=== PATIENT | female | born 1940 | race Caucasian/White ===

== ENCOUNTER → 2016-03-31 | Outpatient (CLI) | payer MEDICARE | END | disposition home or self-care (01) | LOC: PCVCCLINIC 10:00 | PROVIDERS: ATTEND Internal Medicine | DX: I48.0 Paroxysmal atrial fibrillation (principal); I12.9 Hypertensive chronic kidney disease with stage 1 through stage 4 chronic kidney disease, or unspecified chronic kidney disease; N18.9 Chronic kidney disease, unspecified; E78.00 Pure hypercholesterolemia, unspecified; Z79.01 Long term (current) use of anticoagulants; Z94.0 Kidney transplant status | CPT/HCPCS: 80061; G0463 ==

== ENCOUNTER → 2016-11-01 | Outpatient (CLI) | payer MEDICARE | END | disposition home or self-care (01) | LOC: PCVCCLINIC 13:49 | PROVIDERS: ATTEND Internal Medicine | DX: I48.0 Paroxysmal atrial fibrillation (principal); E78.5 Hyperlipidemia, unspecified; M81.0 Age-related osteoporosis without current pathological fracture; I12.9 Hypertensive chronic kidney disease with stage 1 through stage 4 chronic kidney disease, or unspecified chronic kidney disease; N18.4 Chronic kidney disease, stage 4 (severe); Z79.01 Long term (current) use of anticoagulants; Z94.0 Kidney transplant status; Z85.828 Personal history of other malignant neoplasm of skin; Z90.49 Acquired absence of other specified parts of digestive tract; Z79.899 Other long term (current) drug therapy; Z88.2 Allergy status to sulfonamides; Z88.6 Allergy status to analgesic agent; Z88.8 Allergy status to other drugs, medicaments and biological substances; Z90.721 Acquired absence of ovaries, unilateral | CPT/HCPCS: 80061; 93005; G0463 ==

== ENCOUNTER → 2016-11-29 | Outpatient (CLI) | payer MEDICARE | END | disposition home or self-care (01) | LOC: PCVCCLINIC 13:24 | PROVIDERS: ATTEND Internal Medicine | DX: I48.0 Paroxysmal atrial fibrillation (principal); E78.5 Hyperlipidemia, unspecified; I12.9 Hypertensive chronic kidney disease with stage 1 through stage 4 chronic kidney disease, or unspecified chronic kidney disease; N18.4 Chronic kidney disease, stage 4 (severe); M81.0 Age-related osteoporosis without current pathological fracture; Z90.49 Acquired absence of other specified parts of digestive tract; Z79.899 Other long term (current) drug therapy; Z79.01 Long term (current) use of anticoagulants; Z94.0 Kidney transplant status; Z88.8 Allergy status to other drugs, medicaments and biological substances | CPT/HCPCS: 93005; G0463 ==

== ENCOUNTER → 2017-03-05 | Outpatient (CLI) | payer MEDICARE | END | disposition home or self-care (01) | LOC: PCVCCLINIC 09:50 | DX: I48.0 Paroxysmal atrial fibrillation (principal); I10 Essential (primary) hypertension; E78.5 Hyperlipidemia, unspecified; R94.31 Abnormal electrocardiogram [ECG] [EKG]; R00.1 Bradycardia, unspecified; Z94.0 Kidney transplant status; Z79.01 Long term (current) use of anticoagulants; Z79.899 Other long term (current) drug therapy | CPT/HCPCS: 93005; G0463 ==

== ENCOUNTER → 2017-05-17 | Outpatient (CLI) | payer MEDICARE | END | disposition home or self-care (01) | LOC: PCVCCLINIC 15:07 | DX: I48.0 Paroxysmal atrial fibrillation (principal); I10 Essential (primary) hypertension; R94.31 Abnormal electrocardiogram [ECG] [EKG]; Z94.0 Kidney transplant status; Z79.01 Long term (current) use of anticoagulants; Z79.899 Other long term (current) drug therapy | CPT/HCPCS: 93005; G0463 ==

== ENCOUNTER → 2017-11-16 | Outpatient (CLI) | payer MEDICARE | END | disposition home or self-care (01) | LOC: PCVCCLINIC 15:32 | PROVIDERS: ATTEND Internal Medicine | DX: I10 Essential (primary) hypertension (principal); I48.0 Paroxysmal atrial fibrillation; R94.31 Abnormal electrocardiogram [ECG] [EKG]; E78.5 Hyperlipidemia, unspecified; Z94.0 Kidney transplant status; Z79.01 Long term (current) use of anticoagulants; Z88.2 Allergy status to sulfonamides; Z88.8 Allergy status to other drugs, medicaments and biological substances; Z87.891 Personal history of nicotine dependence; Z79.899 Other long term (current) drug therapy | CPT/HCPCS: 80061; 93005; G0463 ==

== ENCOUNTER → 2017-12-07 | Outpatient (CLI) | payer MEDICARE ==
[~2017-12-07] MED LIST: DIAZEPAM 10 MG TABLET. ONE; IOHEXOL 300 MG/ML 50 ML VIAL. ONE; IV NORMAL SALINE 500ML BAG 500 ML ONE; LIDOCAINE 1% Multi-Dose 50 ML VIAL. ONE; MIDAZOLAM HCL/PF 2 MG/2 ML VIAL. ONE; WATER FOR INJECTION,STERILE 20 ML VIAL. IJ ONE; ceFAZolin SODIUM 1 GM VIAL ONE; fentaNYL PF VIAL 100 MCG/2 ML VIAL ONE
--- NOTE | 2017-12-07 15:55 | PCVCINTER ---
EXAM: T12 KYPHOPLASTY INDICATION: Back pain not responding to conservative therapy. Osteoporosis. Subacute compression fractures. PROCEDURE: Procedure and risks of kyphoplasty including bleeding, infection, apparent cement placement, and neurologic deficit were discussed with the patient and consent obtained. IV conscious sedation was utilized with appropriate monitoring for 30 minutes. Patient was placed prone in the interventional suite and the back was prepped with a 10 minute Betadine scrub followed by Betadine pain with sterile draping. IV antibiotics were given. Under fluoroscopic guidance an 11-gauge kyphoplasty needle/cannula was advanced across the left T12 pedicle via a posterolateral approach and its tip positioned in the anterior-midline portion of the vertebral body under fluoroscopic guidance. The kyphoplasty balloon was placed through the cannula into the vertebral body and inflated to restore height and create a void. Balloon was removed and catheter fusion cement was carefully instilled into the vertebra under continuous fluoroscopic guidance. Needle/cannula was removed. No immediate complications. FINDINGS: Technically satisfactory T12 kyphoplasty using fluoroscopic guidance. Adequate cement placement within the vertebral body. No worrisome cement placement. IMPRESSION: T12 kyphoplasty as described above. EXAM: L1 KYPHOPLASTY INDICATION: Back pain not responding to conservative therapy. Osteoporosis. Subacute compression fractures. PROCEDURE: Procedure and risks of kyphoplasty including bleeding, infection, apparent cement placement, and neurologic deficit were discussed with the patient and consent obtained. IV conscious sedation was utilized with appropriate monitoring for 30 minutes. Patient was placed prone in the interventional suite and the back was prepped with a 10 minute Betadine scrub followed by Betadine pain with sterile draping. IV antibiotics were given. Under fluoroscopic guidance an 11-gauge kyphoplasty needle/cannula was advanced across the left L1 pedicle via a posterolateral approach and its tip positioned in the anterior-midline portion of the vertebral body under fluoroscopic guidance. The kyphoplasty balloon was placed through the cannula into the vertebral body and inflated to restore height and create a void. Balloon was removed and catheter fusion cement was carefully instilled into the vertebra under continuous fluoroscopic guidance. Needle/cannula was removed. No immediate complications. FINDINGS: Technically satisfactory L1 kyphoplasty using fluoroscopic guidance. Adequate cement placement within the vertebral body. No worrisome cement placement. IMPRESSION: L1 kyphoplasty as described above. FOLLOW-UP: I will follow up with the patient in clinic in 2 weeks regarding their progress. LOC:[id number]
== END | disposition home or self-care (01) ==
LOC: PCVCINTER 12:48
PROVIDERS: ATTEND Nuclear Medicine Nuclear Cardiology
DX: M80.88XA Other osteoporosis with current pathological fracture, vertebra(e), initial encounter for fracture (principal); M54.5 Low back pain; M54.6 Pain in thoracic spine; E78.00 Pure hypercholesterolemia, unspecified; I12.9 Hypertensive chronic kidney disease with stage 1 through stage 4 chronic kidney disease, or unspecified chronic kidney disease; N18.9 Chronic kidney disease, unspecified; E66.9 Obesity, unspecified; I48.0 Paroxysmal atrial fibrillation; Z85.828 Personal history of other malignant neoplasm of skin; Z90.49 Acquired absence of other specified parts of digestive tract; Z98.890 Other specified postprocedural states; Z88.1 Allergy status to other antibiotic agents; Z88.7 Allergy status to serum and vaccine; Z88.5 Allergy status to narcotic agent; Z88.8 Allergy status to other drugs, medicaments and biological substances; Z79.899 Other long term (current) drug therapy; Z79.01 Long term (current) use of anticoagulants; Z94.0 Kidney transplant status
CPT/HCPCS: 22513; 22515; 99152; 99153; J0690; J2250; J3010; J7040; Q9967; 22514

== ENCOUNTER → 2017-12-27 | Outpatient (CLI) | payer MEDICARE | END | disposition home or self-care (01) | LOC: PCVCCLINIC 13:45 | PROVIDERS: ATTEND Internal Medicine | DX: I10 Essential (primary) hypertension (principal); E78.5 Hyperlipidemia, unspecified; R53.1 Weakness; I48.0 Paroxysmal atrial fibrillation; M81.0 Age-related osteoporosis without current pathological fracture; E78.00 Pure hypercholesterolemia, unspecified | CPT/HCPCS: 93005; G0463 ==